=== PATIENT | female | born 1975 | race Caucasian/White ===

== ENCOUNTER 2021-02-12 13:00 | Emergency (ER) | payer OTHER ==
[2021-02-12 14:37] VITALS: BP 135/57; PULSE 89; TEMP 98; BMI 22.4
[2021-02-13 18:07] LABS: SARS-CoV-2 NAA Detected (Not Detected)
== END 2021-02-12 16:03 | disposition home or self-care (01) ==
LOC: JER 13:00
DX: U07.1 COVID-19 (principal)
CPT/HCPCS: 99283-25; C9803; U0003; U0005

== ENCOUNTER 2021-04-22 14:59 | Emergency (ER) | payer OTHER ==
[2021-04-22 15:25] VITALS: BP 125/77; PULSE 70; TEMP 97.9; BMI 25.1
[2021-04-22] MEDS ORDERED: METOCLOPRAMIDE HCL INJECTION 10 MG/2 ML VIAL IVPUSH ONE (16:13)
[2021-04-22] MEDS ORDERED: KETOROLAC TROMETHAMINE 30 MG/1 ML VIAL IVPUSH ONE (16:14)
[2021-04-22] MEDS ORDERED: KETOROLAC TROMETHAMINE 30 MG/1 ML VIAL ONE (16:18)
[2021-04-22] MEDS ORDERED: METOCLOPRAMIDE HCL INJECTION 10 MG/2 ML VIAL ONE (16:18)
[2021-04-22] MEDS ORDERED: SODIUM CHLORIDE 1,000 ML IV STA (16:28)
== END 2021-04-22 20:02 | disposition home or self-care (01) ==
LOC: JER 14:59
PROC: 3E0333Z Introduction of Anti-inflammatory into Peripheral Vein, Percutaneous Approach (ICD-10-PCS; principal; 2021-04-22)
PROC: 3E033GC Introduction of Other Therapeutic Substance into Peripheral Vein, Percutaneous Approach (ICD-10-PCS; 2021-04-22)
PROC: 3E0337Z Introduction of Electrolytic and Water Balance Substance into Peripheral Vein, Percutaneous Approach (ICD-10-PCS; 2021-04-22)
DX: R51.9 Headache, unspecified (principal)
CPT/HCPCS: 70450-TC; 84703; 99285-25

== ENCOUNTER 2022-12-04 10:29 | Emergency (ER) | payer OTHER ==
[2022-12-04 10:43] VITALS: BP 128/83; PULSE 83; RESP 19; TEMP 97.8; BMI 24.7
[2022-12-04] MEDS ORDERED: guaiFENesin/D-METHORPHAN HB 10 ML UNIT-DOSE CUPS PO ONE (12:37)
[2022-12-04] MEDS ORDERED: ALBUTEROL SO4 2.5/IPRATROPIUM 0.5 INH SOL 3 ML VIAL.NEB. NEB ONE ×2 (12:37→12:40)
[2022-12-04] MEDS ORDERED: guaiFENesin/D-METHORPHAN HB 10 ML UNIT-DOSE CUPS ONE (12:43)
== END 2022-12-04 13:20 | disposition home or self-care (01) ==
LOC: JERFT 10:29
PROC: 3E0F7GC Introduction of Other Therapeutic Substance into Respiratory Tract, Via Natural or Artificial Opening (ICD-10-PCS; principal; 2022-12-04)
DX: R09.89 Other specified symptoms and signs involving the circulatory and respiratory systems (principal); R05.9 Cough, unspecified; R12 Heartburn; J40 Bronchitis, not specified as acute or chronic
CPT/HCPCS: 71046-TC-FY; 99283-25

== ENCOUNTER 2024-02-12 06:40 | Emergency (ER) | payer OTHER ==
[2024-02-12 06:47] VITALS: PULSE 72; RESP 18; TEMP 98.5; BMI 21.9
[2024-02-12] MEDS ORDERED: ACETAMINOPHEN 325 MG TABLET (FP) ONE (08:38)
[2024-02-12] MEDS ORDERED: ALBUTEROL SO4 2.5/IPRATROPIUM 0.5 INH SOL 3 ML VIAL.NEB. NEB ONE (08:38)
[2024-02-12] MEDS: ACETAMINOPHEN 500 MG TABLET (FP) PO ONE (08:59)
[2024-02-12 09:08] LABS: BASO % 0.4 % (0-2.0); EOS % 0.8 % (0-4.5); HEMATOCRIT 42.3 % (32.4-45.2); HEMOGLOBIN 14.2 GM/dL (10.7-15.3); LYMPH % 24.5 % (8-40); MCH 29.5 pg (25.7-33.7); MCHC 33.7 g/dl (32.0-36.0); MEAN CELL VOLUME 87.7 fl (80-96); MEAN PLT VOLUME 8.5 fl (7.5-11.1); MONO % 7.3 % (3.8-10.2); PLATELET COUNT 329 10^3/uL (134-434); RBC 4.82 M/mm3 (3.60-5.2); RDW 12.9 % (11.6-15.6)
[2024-02-12 09:37] LABS: POTASSIUM 3.7 mmol/L (3.5-5.1)
[2024-02-12] MEDS: ALBUTEROL SO4 2.5/IPRATROPIUM 0.5 INH SOL 3 ML VIAL.NEB. NEB SCH (09:37)
[2024-02-12 09:49] LABS: ALBUMIN 3.7 g/dl (3.4-5.0); BLOOD UREA NITROGEN 14.5 mg/dL (7-18)
[2024-02-12 09:51] LABS: BILIRUBIN,TOTAL 0.4 mg/dL (0.2-1); CALCIUM 9.7 mg/dL (8.5-10.1); MAGNESIUM 2.4 mg/dL (1.8-2.4); TOT PROT 7.7 g/dl (6.4-8.2)
[2024-02-12 09:52] LABS: CREATININE 0.5 mg/dL (0.55-1.3)
[2024-02-12 10:22] VITALS: BP 120/79
[2024-02-12] MEDS: ACETAMINOPHEN 1000 MG/100 ML BAG IVPB ONE (10:22)
[2024-02-12] MEDS: FLUTICASONE PROP 0.05% 16 GM NASAL SPRAY NS ONE (10:23)
== END 2024-02-12 10:36 | disposition home or self-care (01) ==
LOC: JER 06:40
PROC: 3E0F7GC Introduction of Other Therapeutic Substance into Respiratory Tract, Via Natural or Artificial Opening (ICD-10-PCS; principal; 2024-02-12)
DX: R51.9 Headache, unspecified (principal); R07.9 Chest pain, unspecified; R09.81 Nasal congestion; R05.9 Cough, unspecified; Z20.822 Contact with and (suspected) exposure to COVID-19
CPT/HCPCS: 0241U-QW; 36415; 71046-TC-FY; 80053; 83735; 84484; 84703; 85025; 93005; 93010; 99285-25